=== PATIENT | male | born 1965 | race Caucasian/White ===

== ENCOUNTER → 2022-03-12 | Day surgery (SDC) | payer OTHER ==
[~2022-03-12] VITALS: Ht 177.8 cm; Wt 86.2 kg
[~2022-03-12] MED LIST: ASPIRIN EC81 MG PO; CHLORTHALIDONE50 MG PO; COQ1050 MG PO; LIPITOR 10MG TA10 MG PO; NIACIN500 M1 PO; NORVASC5 MG PO; ODOR FREE GARL1 EAC1 PO; VITAMIN D310 MCG PO
== END | disposition home or self-care (01) ==
LOC: FAS 09:26
DX: Z12.11 Encounter for screening for malignant neoplasm of colon (principal); D12.0 Benign neoplasm of cecum; D12.3 Benign neoplasm of transverse colon; K57.30 Diverticulosis of large intestine without perforation or abscess without bleeding; F17.200 Nicotine dependence, unspecified, uncomplicated; J44.9 Chronic obstructive pulmonary disease, unspecified; I10 Essential (primary) hypertension; E78.00 Pure hypercholesterolemia, unspecified; Z80.0 Family history of malignant neoplasm of digestive organs; Z86.010 Personal history of colon polyps; Z79.82 Long term (current) use of aspirin
CPT/HCPCS: J2704; J7120